=== PATIENT | female | born 1970 ===

== ENCOUNTER 2017-07-20 10:50 | Emergency (ER) | payer MEDICAID ==
[2017-07-20 10:50] VITALS: BMI 27.2
[2017-07-20 10:55] VITALS: TEMP 97.6
[2017-07-20] MEDS ORDERED: Sodium Chloride 0.9% 1,000 ML IV STA (11:30)
[2017-07-20] MEDS ORDERED: Sodium Chloride 0.9% 1,000 ML ONE (11:49)
[2017-07-20 11:57] LABS: HCG,QUALITATIVE URINE NEGATIVE (NEGATIVE); URINE BILIRUBIN NEGATIVE (NEGATIVE); URINE BLOOD NEGATIVE (NEGATIVE); URINE CLARITY Clear (Clear); URINE COLOR Yellow (YELLOW); URINE GLUCOSE (UA) NORMAL (Normal); URINE LEUKOCYTE ESTERASE NEG Leu/uL (Negative); URINE NITRATE NEGATIVE (NEGATIVE); URINE PROTEIN 1+ mg/dL (NEGATIVE); URINE UROBILINOGEN NORMAL mg/dL (0.2-1.0)
--- NOTE | 2017-07-20 12:46 | C.PDOC ---
History Of Present Illness 46-year-old female, presents to the emergency department with complaints of abdominal pain. Patient states she has been experiencing epigastric abdominal pain for the past two days. Pain is intermittent in nature and non-radiating. Denies any nausea/vomiting, fevers, chills, diarrhea, chest pain, shortness of breath, back pain, or any other associated symptoms. No other complaints at this time. Time Seen by Provider: 07/20/17 11:18 Chief Complaint (Nursing): Abdominal Pain History Per: Patient History/Exam Limitations: no limitations Onset/Duration Of Symptoms: Days Current Symptoms Are (Timing): Still Present Severity: Moderate Location Of Pain/Discomfort: Epigastric Past Medical History Reviewed: Historical Data, Nursing Documentation, Vital Signs Vital Signs: Last Vital Signs Temp 97.6 F 07/20/17 10:53 Pulse 77 07/20/17 15:03 Resp 17 07/20/17 15:03 BP 136/87 07/20/17 15:03 Pulse Ox 99 07/20/17 15:03 - Medical History PMH: HTN, Migraine - [facility] Procedures MANUAL ASSIST DELIV NEC (09/22/14) Family History: States: No Known Family Hx - Social History Hx Tobacco Use: No Hx Alcohol Use: No Hx Substance Use: No - Immunization History Hx Tetanus Toxoid Vaccination: No Hx Influenza Vaccination: No Hx Pneumococcal Vaccination: No Review Of Systems Except As Marked, All Systems Reviewed And Found Negative. Constitutional: Negative for: Fever, Chills Cardiovascular: Negative for: Chest Pain Respiratory: Negative for: Shortness of Breath Gastrointestinal: Positive for: Abdominal Pain. Negative for: Nausea, Vomiting , Diarrhea Musculoskeletal: Negative for: Back Pain Neurological: Negative for: Headache Physical Exam - Physical Exam Appears: Well, Non-toxic, No Acute Distress Skin: Normal Color, Warm, Dry, No Rash Head: Normacephalic Eye(s): bilateral: Normal Inspection, PERRL Nose: Normal Oral Mucosa: Moist Lips: Normal Appearing Neck: Normal ROM Cardiovascular: Rhythm Regular, No Murmur Respiratory: Normal Breath Sounds, No Accessory Muscle Use Gastrointestinal/Abdominal: Soft, Tenderness (Mild), No Guarding, No Rebound Extremity: Normal ROM Neurological/Psych: Oriented x3, Normal Speech ED Course And Treatment - Laboratory Results Result Diagrams: 07/20/17 12:45 07/20/17 12:45 O2 Sat by Pulse Oximetry: 99 (RA) Pulse Ox Interpretation: Normal - CT Scan/US RUQ US Other Rad Studies (CT/US): Read By Radiologist, Radiology Report Reviewed CT/US Interpretation: Accession No. : [id number]. Patient Name / ID : AB CARSON / [id number]. Exam Date : 07/20/2017 13:00:46 ( Approved ). Study Comment : Sex / Age : F / 46Y. Creator : George Raygoza MD. Dictator : George Raygoza MD. Oracle Specialist : Coagulating Drying Supervisor : George Raygoza MD. Approver2 : Report Date : 07/20/2017 13:50:37. My Comment : . HISTORY: epigastric pain. COMPARISON: None. TECHNIQUE: Sonographic evaluation of the right upper quadrant of the abdomen. FINDINGS: LIVER: Measures 15.67 cm in length. Normal echogenicity of the liver parenchyma. No mass. No intrahepatic bile duct dilatation. GALLBLADDER: There are few scattered nonmobile nonshadowing echogenic foci in the gallbladder wall may represent small polyps versus adenomyomatosis. No evidence of acute cholecystitis. COMMON BILE DUCT: Measures 5.1 mm. No stones. No dilatation. PANCREAS: Unremarkable as visualized. No mass. No ductal dilatation. RIGHT KIDNEY: Measures 10.3 x 4.5 x 5.25 cm in length. Normal echogenicity. No calculus, mass, or hydronephrosis. AORTA: No aneurysmal dilatation. IVC: Unremarkable. OTHER FINDINGS: None . IMPRESSION: Few non shadowing echogenic foci at the gallbladder wall may represent small polyps or small adenomyomatosis. No evidence of cholecystitis or biliary obstruction. Progress Note: On re-evaluation patient feels better and is stable to be d/c home with PMD/GI follow up. Medical Decision Making Medical Decision Making: Plan: * Labs * Protonix, IVF, Zofran * US Abdomen * UA/UCG * Reassess and Disposition Disposition - Disposition Referrals: Kiki Block [Staff Provider] - Disposition: HOME/ ROUTINE Disposition Time: 14:41 Condition: STABLE Additional Instructions: Follow up with your PMD within 1-2 days. Return to ED if feel worse. Prescriptions: Dicyclomine [Bentyl] 20 mg PO TID #30 tab Omeprazole 40 mg PO QAM #15 capsule. Instructions: Acute Abdomen (Belly Pain), Adult (DC) Forms: [employer] (Georgian) - Clinical Impression Clinical Impression: Epigastric pain - Scribe Statement The provider has reviewed the documentation as recorded by the Scribe (Le Dee) All medical record entries made by the Scribe were at my direction and personally dictated by me. I have reviewed the chart and agree that the record accurately reflects my personal performance of the history, physical exam, medical decision making, and the department course for this patient. I have also personally directed, reviewed, and agree with the discharge instructions and disposition.
[2017-07-20 12:54] LABS: BASO % 0.3 % (0.0-2.0); EOS # 0.1 K/uL (0.0-0.7); EOS % 0.6 % (0.0-4.0); HEMOGLOBIN 11.8 g/dL (11.0-16.0); LYMPH # 1.3 K/uL (1.0-4.3); LYMPH % 14.9 % (20.0-40.0); MEAN CORPUSCULAR HEMOGLOBIN 27.8 pg (27.0-31.0); MEAN CORPUSCULAR HGB CONC 32.9 g/dL (33.0-37.0); MEAN PLATELET VOLUME 9.1 fL (7.2-11.7); MONO # 0.6 K/uL (0.0-0.8); MONO % 6.6 % (0.0-10.0); NEUT % 77.6 % (50.0-75.0); RBC 4.25 Mil/uL (3.80-5.20); RED CELL DISTRIBUTION WIDTH 15.1 % (11.5-14.5)
[2017-07-20 12:56] LABS: MEAN CELL VOLUME 84.6 fL (81.0-99.0)
[2017-07-20 13:09] LABS: ALB/GLOB RATIO 1.2 (1.0-2.1); ALBUMIN 3.4 g/dL (3.5-5.0); ALT/SGPT 22 U/L (9-52); AST/SGOT 24 U/L (14-36); BLOOD UREA NITROGEN 10 mg/dL (7-17); CALCIUM 8.2 mg/dl (8.6-10.4); GFR AFRICAN-AMERICAN > 60; GFR NON-AFRICAN AMERICAN > 60; LIPASE 59 U/L (23-300)
--- NOTE | 2017-07-20 13:51 | US ---
HISTORY: epigastric pain COMPARISON: None. TECHNIQUE: Sonographic evaluation of the right upper quadrant of the abdomen. FINDINGS: LIVER: Measures 15.67 cm in length. Normal echogenicity of the liver parenchyma. No mass. No intrahepatic bile duct dilatation. GALLBLADDER: There are few scattered nonmobile nonshadowing echogenic foci in the gallbladder wall may represent small polyps versus adenomyomatosis. No evidence of acute cholecystitis COMMON BILE DUCT: Measures 5.1 mm. No stones. No dilatation. PANCREAS: Unremarkable as visualized. No mass. No ductal dilatation. RIGHT KIDNEY: Measures 10.3 x 4.5 x 5.25 cm in length. Normal echogenicity. No calculus, mass, or hydronephrosis. AORTA: No aneurysmal dilatation. IVC: Unremarkable. OTHER FINDINGS: None . IMPRESSION: Few non shadowing echogenic foci at the gallbladder wall may represent small polyps or small adenomyomatosis. No evidence of cholecystitis or biliary obstruction.
[2017-07-20 13:57] VITALS: RESP 17
[2017-07-20 14:44] VITALS: O2SAT 99
[2017-07-20 15:04] VITALS: BP 136/87; PULSE 77
--- NOTE | 2017-07-21 22:17 | CARD ---
APPROVED REPORT EKG Measurement Heart [id number] <Conclusion> Normal sinus rhythm Nonspecific T wave changes: may be normal variant for age / sex Borderline EKG
== END 2017-07-20 15:14 | disposition home or self-care (01) ==
LOC: C.ER 10:50
DX: R10.13 Epigastric pain (principal)
CPT/HCPCS: 76705; 80053; 81001; 83690; 84703; 85025; 93005; 96361; 96374; 99284; C9113; J7040

== ENCOUNTER 2017-10-10 15:59 | Emergency (ER) | payer MEDICAID ==
[2017-10-10 15:59] VITALS: BMI 27.2
[2017-10-10 16:09] VITALS: BP 146/104; PULSE 112; TEMP 98.5; O2SAT 100
[2017-10-10 16:59] LABS: HCG,QUALITATIVE URINE NEGATIVE (NEGATIVE)
[2017-10-10 17:00] LABS: SQUAMOUS EPITHIAL 1 /hpf (0-5); URINE BACTERIA OCC (<OCC); URINE BILIRUBIN NEGATIVE (NEGATIVE); URINE BLOOD 1+ (NEGATIVE); URINE CLARITY Clear (Clear); URINE COLOR Yellow (YELLOW); URINE GLUCOSE (UA) NORMAL (Normal); URINE LEUKOCYTE ESTERASE NEG Leu/uL (Negative); URINE PROTEIN NEGATIVE (NEGATIVE); URINE UROBILINOGEN NORMAL mg/dL (0.2-1.0)
--- NOTE | 2017-10-10 17:07 | C.PDOC ---
History Of Present Illness 47 year old female with a history of lower abdominal pain and many presentations for headache, presents to the ED with complaints of a headache for 3 days. Patient has been taking 1 nambutone occasionally (prior Rx for back strain) for headache pain with no relief. Time Seen by Provider: 10/10/17 16:15 Chief Complaint (Nursing): Headache History Per: Patient History/Exam Limitations: no limitations Onset/Duration Of Symptoms: Days Current Symptoms Are (Timing): Still Present Past Medical History Reviewed: Historical Data, Nursing Documentation, Vital Signs Vital Signs: Last Vital Signs Temp 98.5 F 10/10/17 16:07 Pulse 112 H 10/10/17 16:07 Resp 16 10/10/17 17:17 BP 146/104 H 10/10/17 16:07 Pulse Ox 100 10/10/17 18:38 - Medical History PMH: HTN, Migraine - [facility] Procedures MANUAL ASSIST SAMIR ROLLINS (09/22/14) Family History: States: No Known Family Hx - Social History Hx Tobacco Use: No Hx Alcohol Use: No Hx Substance Use: No - Immunization History Hx Tetanus Toxoid Vaccination: No Hx Influenza Vaccination: No Hx Pneumococcal Vaccination: No Review Of Systems Except As Marked, All Systems Reviewed And Found Negative. Physical Exam - Physical Exam Appears: Non-toxic, No Acute Distress Skin: Normal Color, Warm Head: Atraumatic, Normacephalic Neurological/Psych: Oriented x3, Normal Speech ED Course And Treatment - Laboratory Results Lab Interpretation: Normal (ua neg.) Urine POC: Negative O2 Sat by Pulse Oximetry: 100 (RA) Pulse Ox Interpretation: Normal Medical Decision Making Medical Decision Making: IMPRESSION: seasonal allergies typical headache, improved with tylenol in ED Plan: --Tylenol 975 mg PO --POC Urine Test -- Urine --Urinalysis Disposition Doctor Will See Patient In The: Office Counseled Patient/Family Regarding: Studies Performed, Diagnosis - Disposition Referrals: Kiki Block [Staff Provider] - Disposition: HOME/ ROUTINE Disposition Time: 17:06 Condition: GOOD Additional Instructions: sigue Ibuprofeno 600 mg cada 6 horas o' Tylenol 1000 mg cada 6 horas Medicamentos para congestion nasal/allergias Ana, Claritin, Flonase Sigue con henderson medico roseann necessario. Instructions: Seasonal Allergies in Adults, Headache, Adult (DC) Forms: [facility] (Trinidadian) Print Language: KHMER - Clinical Impression Clinical Impression: Headache, Nasal congestion - Scribe Statement The provider has reviewed the documentation as recorded by the Scribe (Patricia Arrieta) Provider Attestation: All medical record entries made by the Scribe were at my direction and personally dictated by me. I have reviewed the chart and agree that the record accurately reflects my personal performance of the history, physical exam, medical decision making, and the department course for this patient. I have also personally directed, reviewed, and agree with the discharge instructions and disposition.
[2017-10-10 17:19] VITALS: RESP 16
== END 2017-10-10 17:17 | disposition home or self-care (01) ==
LOC: C.ER 15:59
DX: R51 Headache (principal); R09.81 Nasal congestion

== ENCOUNTER 2018-02-17 09:24 | Emergency (ER) | payer MEDICAID ==
[2018-02-17 09:33] VITALS: BMI 22.8
[2018-02-17 09:35] VITALS: BP 136/96; PULSE 74; RESP 17; TEMP 98.5; O2SAT 99
--- NOTE | 2018-02-17 09:55 | C.PDOC ---
History Of Present Illness 47yo female, comes to ER complaining of lower abdominal pain x 6 days. She reports an abscess to the area with purulent discharge yesterday and this morning Otherwise, denies any fever, chills, vomiting or diarrhea. No other complaints. ABSCESS ABD WALL X 6 DAYS, +PURULENT DC YEST.=, STILL THIS MORNING. NO FEVER, OTHER SX EXAM NAD SKIN +OPEN WOUND S/P DRAINING ABSCESS SUPRAPUB AREA. LOCAL INDURATION TO AREA NO FOCAL FLUCTUANCE. NO DC. MIN LOCAL ERYTHEMA REMAINDERNEG Time Seen by Provider: 02/17/18 09:53 Chief Complaint (Nursing): Abnormal Skin Integrity History Per: Patient History/Exam Limitations: no limitations Onset/Duration Of Symptoms: Days Current Symptoms Are (Timing): Still Present Location Of Injury: Anterior: Abdomen (lower) Quality Of Symptoms: Painful, Draining Additional History Per: Patient Past Medical History Reviewed: Historical Data, Nursing Documentation, Vital Signs Vital Signs: Last Vital Signs Temp 98.5 F 02/17/18 09:33 Pulse 74 02/17/18 09:33 Resp 17 02/17/18 09:33 BP 136/96 H 02/17/18 09:33 Pulse Ox 99 02/17/18 10:02 - Medical History PMH: HTN, Migraine Surgical History: No Surg Hx - [facility] Procedures MANUAL ASSIST DELIV NEC (09/22/14) Family History: States: No Known Family Hx - Social History Hx Tobacco Use: No Hx Alcohol Use: No Hx Substance Use: No - Immunization History Hx Tetanus Toxoid Vaccination: No Hx Influenza Vaccination: No Hx Pneumococcal Vaccination: No Review Of Systems Constitutional: Negative for: Fever, Chills Gastrointestinal: Positive for: Abdominal Pain (lower). Negative for: Nausea, Vomiting, Diarrhea Skin: Positive for: Other (abscess on lower abdominal wall; +drainage) Physical Exam - Physical Exam Appears: Non-toxic, No Acute Distress Skin: Warm, Dry, Other (+ open wound s/p drained abscess to suprapubic region. Localized induration to area; no focal fluctuance. No active discharge noted. Minimal focal erythema, no streaking.) Head: Atraumatic, Normacephalic Eye(s): bilateral: Normal Inspection Neck: Supple Cardiovascular: Rhythm Regular Respiratory: Normal Breath Sounds Gastrointestinal/Abdominal: Soft, No Tenderness Neurological/Psych: Oriented x3 ED Course And Treatment O2 Sat by Pulse Oximetry: 99 (RA) Pulse Ox Interpretation: Normal Progress Note: Patient informed on wound care and instructed to take medications as prescribed. Disposition Counseled Patient/Family Regarding: Diagnosis, Need For Followup, Rx Given - Disposition Referrals: YOUR,PMD [Other] Disposition: HOME/ ROUTINE Disposition Time: 10:01 Condition: GOOD Prescriptions: Cephalexin [cephalexin] 500 mg PO BID #14 cap Sulfamethoxazole/Trimethoprim [Bactrim DS 800 mg-160 mg] 1 tab PO BID #14 tab Instructions: Boil (DC) Forms: [employer] (Georgian), Work Excuse Print Language: KYRGYZ - Clinical Impression Clinical Impression: Abscess - Scribe Statement The provider has reviewed the documentation as recorded by the Diallo Marcus Provider Attestation: All medical record entries made by the Diallo were at my direction and personally dictated by me. I have reviewed the chart and agree that the record accurately reflects my personal performance of the history, physical exam, medical decision making, and the department course for this patient. I have also personally directed, reviewed, and agree with the discharge instructions and disposition.
== END 2018-02-17 10:06 | disposition home or self-care (01) ==
LOC: C.ER 09:24
DX: L02.211 Cutaneous abscess of abdominal wall (principal); I10 Essential (primary) hypertension